=== PATIENT | female | born 1985 | race Caucasian/White ===

== ENCOUNTER 2018-05-15 12:42 | Observation (INO) | payer OTHER ==
[2018-05-15] MEDS ORDERED: ZOLPIDEM 5 MG TAB PO (15:00)
[2018-05-15] MEDS ORDERED: ACETAMINOPHEN 325 MG TAB PO (15:00)
[2018-05-15] MEDS ORDERED: ONDANSETRON 4 MG INJ IV (15:00)
[2018-05-15] MEDS: DEXTROSE 5%-0.45% NACL 1,000 ML IV (15:20)
[2018-05-15] MEDS: DOCUSATE SODIUM 100 MG CAP PO (15:26)
[2018-05-15 17:28] LABS: INR 1.01; PROTIME 13.4 Sec (11.9-14.9)
[2018-05-15] MEDS: CIPROFLOXACIN 400MG/D5W 200 ML IVPB (21:01)
[2018-05-15] MEDS: HYDROCODONE/APAP (5/325) TAB PO (21:01)
[2018-05-15] MEDS: FAMOTIDINE 20 MG TAB PO (21:01)
[2018-05-15] MEDS: metroNIDAZOLE 500 MG/NS (PMX) 100 ML IVPB (22:30)
[2018-05-16] MEDS: DOCUSATE SODIUM 100 MG CAP PO ×2 (03:00→15:00)
[2018-05-16] MEDS: metroNIDAZOLE 500 MG/NS (PMX) 100 ML IVPB ×3 (05:42→22:33)
[2018-05-16] MEDS: morphine 2 MG INJ IV (05:42)
[2018-05-16 06:49] LABS: ADD MAN DIFF? NO
[2018-05-16 06:51] LABS: BASOPHILS % 0.4 % (0.0-2.0); EOSINOPHILS # 0.2 10^3/ul (0.0-0.5); HEMATOCRIT 35.2 % (37.0-47.0); HEMOGLOBIN 11.4 g/dl (12.0-16.0); LYMPHOCYTES # 2.1 10^3/ul (0.8-2.9); LYMPHOCYTES % 28.2 % (15.0-51.0); MEAN CORPUSCULAR HEMOGLOBIN 28.9 pg (29.0-33.0); MEAN CORPUSCULAR HGB CONC 32.4 g/dl (32.0-37.0); MEAN CORPUSCULAR VOLUME 89.3 fl (82.0-101.0); MEAN PLATELET VOLUME 10.8 fl (7.4-10.4); MONOCYTE # 0.7 10^3/ul (0.3-0.9); MONOCYTES % 9.5 % (0.0-11.0); NEUTROPHIL # 4.3 10^3/ul (1.6-7.5); NEUTROPHILS % 58.6 % (39.0-77.0); PLATELET COUNT 278 10^3/UL (140-415); RED BLOOD COUNT 3.94 10^6/ul (4.20-5.40)
[2018-05-16 06:51] LABS: WHITE BLOOD COUNT 7.4 10^3/ul (4.8-10.8)
[2018-05-16 07:21] LABS: ALANINE AMINOTRANSFERASE 27 IU/L (13-69); ALBUMIN 3.3 g/dl (3.3-4.9); ALKALINE PHOSPHATASE 44 IU/L (42-121); ANION GAP 9 (8-16); ASPARTATE AMINO TRANSFERASE 14 IU/L (15-46); BILIRUBIN,INDIRECT 0.3 mg/dl (0-1.1); BILIRUBIN,TOTAL 0.3 mg/dl (0.2-1.3); BLOOD UREA NITROGEN 7 mg/dl (7-20); CALCIUM 8.5 mg/dl (8.4-10.2); CARBON DIOXIDE 24 mmol/L (21-31); CHLORIDE 108 mmol/L (97-110); CREATININE 0.61 mg/dl (0.44-1.00); GLUCOSE 95 mg/dl (70-220); MAGNESIUM 1.9 mg/dl (1.7-2.5); POTASSIUM 3.9 mmol/L (3.5-5.1); SODIUM 137 mmol/L (135-144); TOTAL PROTEIN 6.3 g/dl (6.1-8.1)
[2018-05-16 07:48] LABS: HEPATITIS B SURFACE ANTIGEN NEGATIVE (NEGATIVE)
[2018-05-16 08:05] LABS: HEPATITIS C VIRAL ANTIBODY NEGATIVE (NEGATIVE)
[2018-05-16] MEDS: FAMOTIDINE 20 MG TAB PO ×2 (08:07→21:15)
[2018-05-16] MEDS: CIPROFLOXACIN 400MG/D5W 200 ML IVPB ×2 (08:07→21:20)
[2018-05-16 08:16] LABS: HEPATITIS B SURFACE ANTIBODY POSITIVE (NEGATIVE)
[2018-05-16] MEDS ORDERED: FENTAnyl 50 MCG/ML VIAL ×2 (11:36→12:04)
[2018-05-16] MEDS ORDERED: ONDANSETRON 4 MG INJ (11:37)
[2018-05-16] MEDS ORDERED: MIDAZOLAM 1 MG/ML 2 ML INJ (11:37)
[2018-05-16] MEDS ORDERED: ROCURONIUM 50 MG INJ (11:37)
[2018-05-16] MEDS ORDERED: SUCCINYLCHOLINE CHLORIDE 100 MG/5 ML SYG IV (11:37)
[2018-05-16] MEDS ORDERED: PROPOFOL 20 ML (11:37)
[2018-05-16] MEDS ORDERED: LIDOCAINE 2% (SDV) 5 ML INJ (11:37)
[2018-05-16] MEDS ORDERED: PHENYLephrine (100 MCG/ML) 5ML SYG (12:15)
[2018-05-16] MEDS: LIDOCAINE 1% (MPF) 30 ML INJ (12:15)
[2018-05-16] MEDS: BUPIVACAINE 0.25%/EPI (MDV) 50 ML VIAL INJ (12:15)
[2018-05-16] MEDS ORDERED: SUGAMMADEX SODIUM 200 MG/2 ML VIAL IV (12:25)
[2018-05-16] MEDS ORDERED: HYDROmorphONE 1 MG/5 ML IV SYRINGE IV ×2 (13:11→13:30)
[2018-05-16] MEDS: HYDROmorphONE 1 MG/5 ML IV SYRINGE IV ×2 (13:28→13:36)
[2018-05-16] MEDS ORDERED: FENTAnyl 50 MCG/ML VIAL IV ×2 (13:30)
[2018-05-16] MEDS ORDERED: KETOROLAC 30 MG INJ IV (13:30)
[2018-05-16] MEDS ORDERED: HYDROCODONE/APAP (5/325) TAB PO (13:30)
[2018-05-16] MEDS ORDERED: hydrALAzine 20 MG INJ IV (13:30)
[2018-05-16] MEDS ORDERED: ACETAMINOPHEN 325 MG TAB PO (13:30)
[2018-05-16] MEDS ORDERED: ONDANSETRON 4 MG INJ IV (13:30)
[2018-05-16] MEDS ORDERED: DIPHENHYDRAMINE 50 MG INJ IV (13:30)
[2018-05-16] MEDS ORDERED: LABETALOL HCL 20MG INJ IV (13:30)
[2018-05-16] MEDS: MEPERIDINE 25 MG INJ IV (13:41)
[2018-05-16] MEDS: HYDROCODONE/APAP (5/325) TAB PO ×3 (16:02→21:15)
[2018-05-16] MEDS: HYDROmorphONE 0.5 MG/0.5 ML SYG IV (17:12)
[2018-05-17] MEDS: DOCUSATE SODIUM 100 MG CAP PO ×3 (03:00→14:00)
[2018-05-17] MEDS: HYDROCODONE/APAP (5/325) TAB PO ×3 (05:17→13:58)
[2018-05-17] MEDS: metroNIDAZOLE 500 MG/NS (PMX) 100 ML IVPB ×2 (05:17→13:53)
[2018-05-17 05:57] LABS: ADD MAN DIFF? NO
[2018-05-17 06:03] LABS: WHITE BLOOD COUNT 9.3 10^3/ul (4.8-10.8)
[2018-05-17 06:03] LABS: BASOPHILS % 0.3 % (0.0-2.0); EOSINOPHILS # 0.2 10^3/ul (0.0-0.5); EOSINOPHILS % 1.8 % (0.0-7.0); HEMATOCRIT 32.5 % (37.0-47.0); HEMOGLOBIN 10.4 g/dl (12.0-16.0); LYMPHOCYTES # 1.8 10^3/ul (0.8-2.9); LYMPHOCYTES % 18.8 % (15.0-51.0); MEAN CORPUSCULAR HEMOGLOBIN 28.5 pg (29.0-33.0); MEAN PLATELET VOLUME 10.6 fl (7.4-10.4); MONOCYTE # 0.7 10^3/ul (0.3-0.9); MONOCYTES % 7.6 % (0.0-11.0); NEUTROPHIL # 6.6 10^3/ul (1.6-7.5); NEUTROPHILS % 71.2 % (39.0-77.0); PLATELET COUNT 258 10^3/UL (140-415); RED BLOOD COUNT 3.65 10^6/ul (4.20-5.40); RED CELL DISTRIBUTION WIDTH 14.2 % (11.5-14.5)
[2018-05-17 06:17] LABS: ANION GAP 9 (8-16); BLOOD UREA NITROGEN 5 mg/dl (7-20); CALCIUM 8.5 mg/dl (8.4-10.2); CARBON DIOXIDE 26 mmol/L (21-31); CHLORIDE 107 mmol/L (97-110); CREATININE 0.63 mg/dl (0.44-1.00); GLUCOSE 89 mg/dl (70-220); MAGNESIUM 1.8 mg/dl (1.7-2.5); POTASSIUM 4.1 mmol/L (3.5-5.1); SODIUM 138 mmol/L (135-144)
[2018-05-17] MEDS: FAMOTIDINE 20 MG TAB PO (09:18)
[2018-05-17] MEDS: CIPROFLOXACIN 400MG/D5W 200 ML IVPB (09:18)
[2018-05-17] MEDS: HYDROmorphONE 0.5 MG/0.5 ML SYG IV (12:44)
== END 2018-05-17 19:00 | disposition home or self-care (01) ==
LOC: MS2 12:42
DX: K80.10 Calculus of gallbladder with chronic cholecystitis without obstruction (principal); K75.81 Nonalcoholic steatohepatitis (NASH); J45.909 Unspecified asthma, uncomplicated; E66.9 Obesity, unspecified; Z68.32 Body mass index [BMI] 32.0-32.9, adult; Z88.3 Allergy status to other anti-infective agents
CPT/HCPCS: 47379; 71045; 80048; 80053; 83735; 84703; 85025; 85610; 86706; 86803; 87340; 88304; 88307; 88313; 99217